=== PATIENT | male | born 1950 | race Caucasian/White ===

== ENCOUNTER 2017-01-22 11:47 | Emergency (ER) | payer OTHER ==
[2017-01-22] MEDS ORDERED: PLAVIX PO (12:02)
[2017-01-22] MEDS ORDERED: FENTANYL PAIN PUMP (12:02)
[2017-01-22] MEDS ORDERED: GOUT MEDICATION PO (12:02)
[2017-01-22] MEDS ORDERED: BLOOD PRESSURE MED PO (12:02)
[2017-01-22] MEDS ORDERED: THYROID MED PO (12:04)
== END 2017-01-22 12:55 | disposition home or self-care (01) ==
LOC: SED 11:47
DX: S61.210A Laceration without foreign body of right index finger without damage to nail, initial encounter (principal); S80.211A Abrasion, right knee, initial encounter; Z23 Encounter for immunization; Z88.5 Allergy status to narcotic agent; W22.8XXA Striking against or struck by other objects, initial encounter; Y92.9 Unspecified place or not applicable
CPT/HCPCS: 12001; 90471; 90715; 99283

== ENCOUNTER 2017-02-10 14:03 | Emergency (ER) | payer MEDICARE ==
--- NOTE | ~2017-02-10 | CR72 ---
[facility]. [facility] A Service of [facility] & [facility] RADIOLOGY TEXT RESULTS PATIENT: BRIJESH BECKHAM LOCATION: SED : 48 UNIT #: [id number] AGE: [address]: Misha Murry MD SEX: M ORDER DR: [id number] [place] [id number] E MR#: [id number] Acc #: [id number] NAME: BRIJESH BECKHAM. : 1950 SEX: M STUDY DATE/TIME: 02/10/2017 14:24 UNIT: SED ROOM: STUDY DESCRIPTION: CR Chest Single View Portable Attending Physician: Misha Murry M.D. Ordering Physician: Misha Murry M.D. Primary Care Physician: No Primary Care Physician MEDICAL IMAGING REPORT This report is preliminary unless electronic signature is present. EXAMINATION AP portable chest. DATE 02/10/2017 HISTORY Chest pain and shortness of breath for 30 minutes prior to arrival. COMPARISON None. FINDINGS Heart size is borderline enlarged. Pulmonary vascular distribution is normal. No acute airspace disease, pleural effusion, pneumothorax or acute osseous abnormality. IMPRESSION 1. Heart size upper limits normal. No acute cardiopulmonary findings. Dictated by... Daya Bryan M.D. THIS IS AN ELECTRONICALLY VERIFIED REPORT Daya Bryan M.D. at 02/11/2017 1:53 PM JANIA/lola TD: 02/10/2017 20:29 JOB #: [id number] MEDICAL IMAGING REPORT Page 1 of 1
--- NOTE | ~2017-02-10 | EKG ---
PATIENT: BRIJESH BECKHAM UNIT #: [id number] Ventricular Rate: 68 BPM Atrial Rate: 68 BPM P-R Interval: 132 ms QRS Duration: 90 ms Q-T Interval: 394 ms QTC Calculation(Bezet): 418 ms P [place]: 62 degrees Calculated R [place]: 26 degrees Calculated T [place]: 83 degrees Diagnosis Line: Normal sinus rhythm Diagnosis Line: Normal ECG Diagnosis Line: No previous ECGs available Diagnosis Line: Confirmed by LUCY TORRES MD ([id number]) on 02/11/2017 Diagnosis Line: 4:31:53 PM INTERPRETING MD: MELISSA VANN
[~2017-02-10 14:03] MED LIST: BLOOD PRESSURE MED PO; FENTANYL PAIN PUMP; GOUT MEDICATION PO; PLAVIX PO; THYROID MED PO
[2017-02-10 14:28] LABS: BASOPHIL# 0.1 X10e3 (0-0.3); BASOPHIL% 0.5 % (0-2.5); HEMOGLOBIN 15.1 gm/dL (13.0-16.0); LYMPHOCYTE# 2.4 X10e3 (1.0-3.5); MEAN CELL VOLUME 89.8 FL (83-96); MEAN CORPUSCULAR HEMOGLOBIN 30.9 PG (28-34); MEAN CORPUSCULAR HGB CONC 34.4 g/dL (30-36); MEAN PLATELET VOLUME 8.1 FL (6.5-11.5); MONOCYTE# 0.9 X10e3 (0-1.0); MONOCYTE% 5.9 % (3.0-12.0); NEUTROPHIL# 11.8 X10e3 (1.5-7.1); NEUTROPHIL% 77.6 % (40-75); PLATELET COUNT 276 X10e3 (140-420); RED CELL DISTRIBUTION WIDTH 13.6 % (11.0-15.5); WHITE BLOOD COUNT 15.2 X10e3 (4.0-10.5)
[2017-02-10 14:37] LABS: DIFF IND NO
[2017-02-10 14:45] LABS: ALBUMIN SERUM 4.4 g/dL (3.5-5.0); BILIRUBIN, DIRECT 0.1 mg/dL (0.0-0.2); BILIRUBIN,INDIRECT 0.2 mg/dL (0.0-0.9); BILIRUBIN,TOTAL 0.3 mg/dL (0.2-2.0); BUN/CREATININE RATIO 24.44; CALCIUM SERUM 9.2 mg/dL (8.4-10.2); CREATININE SERUM 0.9 mg/dL (0.6-1.4); GLOM FILT RATE Estimated 88.1 mL/min (>60); PROTEIN TOTAL SERUM 7.7 g/dL (6.0-8.3)
[2017-02-10] MEDS ORDERED: TIROSINT50 MCG PO (14:49)
[2017-02-10] MEDS ORDERED: ULORIC80 MG PO (14:49)
[2017-02-10] MEDS ORDERED: DULOXETINE HCL60 MG PO (14:50)
[2017-02-10] MEDS ORDERED: COREG6.25 MG PO (14:50)
[2017-02-10] MEDS ORDERED: FENTANYL PUMP (14:51)
[2017-02-10 14:53] LABS: INR 1.1
[2017-02-10 15:01] LABS: PARTIAL THROMBOPLASTIN TIME 24.2 SECONDS (25.6-38.1)
[2017-02-10 16:18] LABS: POC - CKMB 1.9 ng/mL (0.0-7.9); POC - MYOGLOBIN 91.3 ng/mL (0.0-169.0); POC - TROPONIN <0.05 ng/mL (<=0.05)
[2017-02-12 05:18] LABS: POC - CKMB 1.9 ng/mL (0.0-7.9); POC - TROPONIN <0.05 ng/mL (<=0.05)
== END 2017-02-10 18:07 | disposition home or self-care (01) ==
LOC: SED 14:03
PROVIDERS: Emergency Medicine
DX: R07.9 Chest pain, unspecified (principal); I10 Essential (primary) hypertension; Z79.899 Other long term (current) drug therapy; Z88.5 Allergy status to narcotic agent
CPT/HCPCS: 36415; 71010; 80048; 80076; 82553; 83874; 84484; 85025; 85610; 85730; 93005; 96374; 99285; J0360